=== PATIENT | female | born 1970 | race African-American/Black ===

== ENCOUNTER 2016-11-15 03:07 | Emergency (ER) | payer OTHER ==
[2016-11-15 03:30] VITALS: BMI 39.5
--- NOTE | 2016-11-15 03:31 | PDOC ---
History of Present Illness - General History Source: Patient Exam Limitations: No Limitations - History of Present Illness Initial Comments: 11/15/16 03:45 The patient is a 46 year old female with significant past medical history of seizure disorder who presents to the ED with s/p witnessed seizure episode prior to arrival. Denies head trauma, headache, tongue biting, or bladder/bowel incontinence. States her seizure medications have increased since then she has had 3 seizures 2 weeks ago. At time of evaluation, patient has no complaints. The patient denies fever, chills, cough, SOB, chest pain, and palpitations. The patient denies abdominal pain, nausea, vomiting, and diarrhea. Allergies: diphenhydramine HCl Social History: No alcohol, tobacco, or drug use reported. Past Surgical History: None reported PCP: Dr. Ilsa Brandt Neurologist: Dr. Croft <Ashely Couch - Last Filed: 11/15/16 03:45> - General History Source: Patient <Christian Shoemaker - Last Filed: 11/15/16 05:05> - General Chief Complaint: Seizure Stated Complaint: SEIZURE Time Seen by Provider: 11/15/16 03:31 Past History <Ashely Couch - Last Filed: 11/15/16 03:45> - Past Medical History Anemia: No Asthma: No Cancer: No Cardiac Disorders: No CVA: No COPD: No CHF: No Dementia: No Diabetes: Yes (borderline) GI Disorders: No Disorders: No HTN: No Hypercholesterolemia: No Liver Disease: No Suicide Attempt (Hx): No Seizures: Yes (STOPPED MEDS ON OWN X 2 DAYS) Thyroid Disease: No - Surgical History Orthopedic Surgery: Yes - Immunization History Td Vaccination: No TDAP Vaccination: No Immunization Up to Date: No - Psycho/Social/Smoking Cessation Hx Anxiety: No Suicidal Ideation: No Smoking Status: Yes Smoking History: Never smoked Have you smoked in the past 12 months: No Number of Cigarettes Smoked Daily: 6 'Breaking Loose' booklet given: 08/31/14 Hx Alcohol Use: No Drug/Substance Use Hx: No Substance Use Type: None Hx Substance Use Treatment: No <Christian Shoeamker - Last Filed: 11/15/16 05:05> - Past Medical History Allergies/Adverse Reactions: Allergies Allergy/AdvReac Type Severity Reaction Status Date / Time diphenhydramine HCl Allergy Verified 11/15/16 03:38 [From Benadryl] Home Medications: Ambulatory Orders Lacosamide [Vimpat] 200 mg PO BID 01/29/12 Oxcarbazepine [Trileptal] 350 mg PO BID 03/18/15 Review of Systems - Review of Systems Able to Perform ROS?: Yes Comments:: 11/15/16 03:45 CONSTITUTIONAL: Absent: fever, no chills, no fatigue EYES: Absent: visual changes ENT: Absent: ear pain, no sore throat CARDIOVASCULAR: Absent: chest pain, no palpitations RESPIRATORY: Absent: cough, no SOB GI: Absent: abdominal pain, no nausea, no vomiting, no constipation, no diarrhea GENITOURINARY: Absent: dysuria, no frequency, no hematuria MUSCULOSKELETAL: Absent: back pain, no arthralgia, no myalgia SKIN: Absent: rash NEURO: +seizure Absent: headache <Ashely Couch - Last Filed: 11/15/16 03:45> *Physical Exam - Vital Signs Last Vital Signs Temp Pulse Resp BP Pulse Ox 98.1 F 71 18 124/75 99 11/15/16 03:23 11/15/16 03:23 11/15/16 03:23 11/15/16 03:23 11/15/16 03:23 - Physical Exam Comments: 11/15/16 03:45 GENERAL: Well-appearing, well-nourished. No apparent distress. HEENT: Normocephalic, atraumatic. PERRL, EOM intact. CARDIOVASCULAR: Normal S1, S2. Regular rate and rhythm. PULMONARY: Clear to auscultation bilaterally. ABDOMEN: Soft, non-distended, non-tender. EXTREMITIES: Normal ROM in all four extremities. No gross deformities. SKIN: Warm, dry. No rash NEUROLOGICAL: No focal neurological deficits. <Ashely Couch - Last Filed: 11/15/16 03:45> - Vital Signs Last Vital Signs Temp Pulse Resp BP Pulse Ox 98.1 F 71 18 124/75 99 11/15/16 03:23 11/15/16 03:23 11/15/16 03:23 11/15/16 03:23 11/15/16 03:23 <Christian Shoemaker - Last Filed: 11/15/16 05:05> ED Treatment Course - LABORATORY CBC & Chemistry Diagram: 11/15/16 04:10 11/15/16 04:10 <Christain Shoemaker - Last Filed: 11/15/16 05:05> *DC/Admit/Observation/Transfer - Attestations Scribe Attestion: 11/15/16 03:45 Documentation prepared by Ashely Couch, acting as medical doctor for Christian Shoemaker MD <Ashely Couch - Last Filed: 11/15/16 03:45> - Discharge Dispostion Admit: No <Christian Shoemaker - Last Filed: 11/15/16 05:05> Diagnosis at time of Disposition: Seizure - Discharge Dispostion Disposition: HOME Condition at time of disposition: Stable - Referrals Referrals: Ilsa Brandt MD [Primary Care Provider] - - Patient Instructions Printed Discharge Instructions: DI for Seizure Disorder -- Adult Additional Instructions: Please follow up with your [id number] as soon as possible.
[2016-11-15 04:18] LABS: BASOPHIL 0.8 % (0-2.0); EOSINOPHIL 1.6 % (0-4.5); MCH 29.4 pg (25.7-33.7); MCHC 33.4 g/dl (32.0-36.0); MEAN CELL VOLUME 88.1 fl (80-96); MEAN PLT VOLUME 7.3 fl (7.5-11.1); NEUTROPHILS 71.4 % (42.8-82.8); PLATELET COUNT 278 K/MM3 (134-434); RDW 14.4 % (11.6-15.6); WHITE BLOOD COUNT 6.8 K/mm3 (4.0-10.0)
[2016-11-15 04:44] LABS: ALBUMIN 3.9 g/dl (3.4-5.0); ANION GAP 5 (8-16); BILIRUBIN,TOTAL 0.2 mg/dL (0.2-1.0); CALCIUM 8.6 mg/dL (8.5-10.1); CO2 30 mmol/L (21-32); COCKROFT - GAULT 218.1185; CREATININE 0.6 mg/dL (0.55-1.02); GLUCOSE,RANDOM 107 mg/dL (74-106); SGOT/AST 16 U/L (15-37); SGPT/ALT 15 U/L (12-78)
[2016-11-15 04:45] LABS: ALK PHOS 46 U/L (45-117); TOT PROT 7.2 g/dl (6.4-8.2)
[2016-11-15 05:18] VITALS: BP 125/78; PULSE 68; TEMP 98.3
== END 2016-11-15 05:15 | disposition home or self-care (01) ==
LOC: JER 03:07
DX: G40.909 Epilepsy, unspecified, not intractable, without status epilepticus (principal); E11.9 Type 2 diabetes mellitus without complications
CPT/HCPCS: 36415; 70450-TC; 80053; 81003; 83735; 84703; 85025; 99283-25

== ENCOUNTER 2016-12-04 12:08 | Emergency (ER) | payer OTHER ==
[2016-12-04 12:25] VITALS: BMI 36.5
[2016-12-04] MEDS ORDERED: SODIUM CHLORIDE 1,000 ML IV ONE (12:41)
--- NOTE | 2016-12-04 12:41 | PDOC ---
History of Present Illness - General History Source: Patient Exam Limitations: No Limitations - History of Present Illness Initial Comments: 12/04/16 13:02 The patient is a 46 year old female with a significant past medical history of seizure disorder, and borderline diabetes, brought by ambulance to the Emergency Department s/p seizure just prior to arrival. The patient reports that she was at home when she had a seizure, falling out of a chair onto her face and knees. She admits that she had a nosebleed, and admits to right knee pain. She reports that the seizure was unwitnessed, and she is unsure how long she was unconsciousness, though her daughters were home. She admits that she was seen in the ED on 11/15 for her last seizure, and had a CT that was negative. She states that she has been having seizures for many years, and that they were well controlled until this July. She admits that this seizure was typical of her seizures. She reports seeing her neurologist earlier in the month , who increased her dosage of seizure medication. She admits that she takes 450 Trileptal in the morning, and was recently prescribed to increase her night time dosage to 600. She admits that she has not yet started her increased dosage due to insurance reasons. She admits to taking her 450 dose this morning. The patient denies headache, dizziness, and visual changes. Patient denies numbness or tingling to extremities. Patient denies nausea, vomiting, and diarrhea. Patient denies cough, fever, and chills. Neurologist: Dr. Osman <Roxie Diaz - Last Filed: 12/04/16 13:02> <Girma Murray - Last Filed: 12/04/16 14:10> - General Chief Complaint: Seizure Stated Complaint: seizures Time Seen by Provider: 12/04/16 12:31 Past History <Roxie Diaz - Last Filed: 12/04/16 13:02> - Past Medical History Anemia: No Asthma: No Cancer: No Cardiac Disorders: No CVA: No COPD: No CHF: No Dementia: No Diabetes: Yes (borderline) GI Disorders: No Disorders: No HTN: No Hypercholesterolemia: No Liver Disease: No Suicide Attempt (Hx): No Seizures: Yes (vimpat and trileptal) Thyroid Disease: No - Surgical History Orthopedic Surgery: Yes - Immunization History Td Vaccination: No TDAP Vaccination: No Immunization Up to Date: No - Psycho/Social/Smoking Cessation Hx Anxiety: No Suicidal Ideation: No Smoking Status: Yes Smoking History: Former smoker Have you smoked in the past 12 months: No Number of Cigarettes Smoked Daily: 6 If you are a former smoker, when did you quit?: 2009 Information on smoking cessation initiated: No 'Breaking Loose' booklet given: 08/31/14 Hx Alcohol Use: No Drug/Substance Use Hx: No Substance Use Type: None Hx Substance Use Treatment: No <Girma Murray - Last Filed: 12/04/16 14:10> - Past Medical History Allergies/Adverse Reactions: Allergies Allergy/AdvReac Type Severity Reaction Status Date / Time diphenhydramine HCl Allergy Verified 12/04/16 12:23 [From Benadryl] Home Medications: Ambulatory Orders Lacosamide [Vimpat] 200 mg PO BID 01/29/12 Oxcarbazepine [Trileptal] 350 mg PO BID 03/18/15 Nitrofurantoin Monohyd/M-Cryst [Macrobid -] 100 mg PO BID #14 capsule 12/04/16 Review of Systems - Review of Systems Constitutional: No: Chills, Fever HEENTM: No: Eye Pain, Nose Congestion, Throat Swelling Respiratory: No: Cough, Shortness of Breath Cardiac (ROS): No: Chest Pain ABD/GI: No: Vomiting Neurological: No: Headache All Other Systems: Reviewed and Negative <Girma Murray - Last Filed: 12/04/16 14:10> *Physical Exam - Vital Signs Last Vital Signs Temp Pulse Resp BP Pulse Ox 98.1 F 79 18 142/90 100 12/04/16 12:19 12/04/16 12:19 12/04/16 12:19 12/04/16 12:19 12/04/16 12:19 - Physical Exam Comments: 12/04/16 13:04 GENERAL: The patient is awake, alert, and answering questions appropriately. Slightly disoriented to time. In no acute distress. HEAD: No facial tenderness or deformity. No C-spine tenderness. EYES: Pupils equal, round and reactive to light, extraocular movements intact, sclera anicteric, conjunctiva clear with no pallor. ENT: Ears normal, nares patent, oropharynx clear without exudates. Moist mucous membranes. NECK: Normal range of motion, supple without lymphadenopathy, JVD, or masses. LUNGS: Breath sounds equal, clear to auscultation bilaterally. No wheeze/ crackles. HEART: Regular rate and rhythm, normal S1 and S2 without murmur or rub. ABDOMEN: Soft/nontender/nondistended. BS wnl. No guarding or rebound. No palpable masses. No hepatosplenomegaly. EXTREMITIES: 3mm abrasion over right patella, no bony deformity or focal tenderness. Extensor mechanism intact. Normal range of motion, no edema. No clubbing or cyanosis. No cords, or erythema. NEURO: Mental status: Conversant and answering questions appropriately, slightly disoriented to time. Cranial nerves: Cranial nerves II through XII are intact Motor: The upper extremities are 5 over 5 in all muscle groups. The lower extremities are 5 over 5 in all muscle groups. No pronator drift. Sensation: Sensation is intact to light touch throughout. Cerebellar: Pilpox-[id number] is normal in both upper extremities. Heel-knee- morrison is normal in both lower extremities. Reflexes: 2+ and symmetric in the upper and lower extremities. PSYCH: Normal mood. SKIN: Warm, Dry, normal turgor, no rashes or lesions noted. <Roxie Diaz - Last Filed: 12/04/16 13:02> - Vital Signs Last Vital Signs Temp Pulse Resp BP Pulse Ox 98.1 F 79 18 142/90 100 12/04/16 12:19 12/04/16 12:19 12/04/16 12:19 12/04/16 12:19 12/04/16 12:19 <Girma Murray - Last Filed: 12/04/16 14:10> Heart Score/ECG Review #1 ECG reviewed & interpreted by me at: 13:53 General ECG Interpretation: Sinus Rhythm, Normal Rate (66), Normal Intervals ( qtc 454), No acute ischemic changes <Girma Murray - Last Filed: 12/04/16 14:10> ED Treatment Course - LABORATORY CBC & Chemistry Diagram: 12/04/16 13:11 12/04/16 13:11 <Girma Murray - Last Filed: 12/04/16 14:10> Medical Decision Making - Medical Decision Making 12/04/16 13:10 A portion of this note was documented by scribe services under my direction. I have reviewed the details of the note, within reason, and agree with the documentation with the following case summary and management plan written by me. 46-year-old female with history of seizures maintained on Trileptal now with breakthrough seizures in the morning with recommendations from her neurologist to increase dose from 450 twice a day to 450 in the morning and 600 at night, but has been noncompliant with that adjustment and now presents with repeat seizure today. Complaining of right knee pain, otherwise typical seizure. No previous infectious or dehydration complaints, has no new neuro complaints, no headache. Exam as noted, trauma exam limited to right knee with some discomfort but no gross evidence of fracture Neurologically intact, neurovascularly intact 46-year-old female with increasing frequency of seizures presents with another seizure, self resolved. Etiology is likely noncompliance with the recommended increased dose, but the patient was just having difficulty combining her current meds to meet the dosing recommendations. We discussed this at length and figured out a way for her to take the doses properly. no indication for emergent repeat imaging - CT 11/15 without acute pathology labs, ua ivf reassess 12/04/16 13:59 No leukocytosis, electrolytes are within normal limits, CK is normal. Urinalysis with 2+ leuk esterase and 6 white blood cells, will treat empirically for UTI given increased frequency of seizures. Improved now, ambulating steadily in the ED, no further sz activity. Will d/c on macrobid, f/u with her neurologist, start the new recommended doses. Understands return criteria. <Girma Murray - Last Filed: 12/04/16 14:10> *DC/Admit/Observation/Transfer - Attestations Scribe Attestion: 12/04/16 13:07 Documentation prepared by Roxie Diaz, acting as medical hospital sales for Girma Murray MD. <Roxie Diaz - Last Filed: 12/04/16 13:02> <Girma Murray - Last Filed: 12/04/16 14:10> Diagnosis at time of Disposition: Seizure Qualifiers: Convulsion type: unspecified Qualified Code(s): R56.9 - Unspecified convulsions UTI (urinary tract infection) Qualifiers: Urinary tract infection type: acute cystitis Hematuria presence: without hematuria Qualified Code(s): N30.00 - Acute cystitis without hematuria - Discharge Dispostion Disposition: HOME Condition at time of disposition: Improved - Prescriptions Prescriptions: Nitrofurantoin Monohyd/M-Cryst [Macrobid -] 100 mg PO BID #14 capsule - Referrals Referrals: Ilsa Brandt MD [Primary Care Provider] - - Patient Instructions Printed Discharge Instructions: DI for Urinary Tract Infection (UTI) Additional Instructions: Activity as tolerated. Stay hydrated. A urine test shows evidence of an infection. Take Macrobid as prescribed. Continue your medications as previously prescribed by your physician - take 450mg in the morning and 600mg at night as we discussed as your neurologist recommended. You should follow up with your primary doctor and neurologist as soon as possible regarding today's emergency department visit. Return to the emergency department for any new or concerning symptoms, particularly fevers or chills, persistent seizures, difficulty urinating.
[2016-12-04 13:28] LABS: BASOPHIL 1.1 % (0-2.0); EOSINOPHIL 1.9 % (0-4.5); MCH 29.1 pg (25.7-33.7); MEAN CELL VOLUME 88.2 fl (80-96); MEAN PLT VOLUME 7.2 fl (7.5-11.1); NEUTROPHILS 72.2 % (42.8-82.8); PLATELET COUNT 268 K/MM3 (134-434); WHITE BLOOD COUNT 6.8 K/mm3 (4.0-10.0)
[2016-12-04 13:48] LABS: URINE APPEARANCE CLEAR; URINE BILIRUBIN NEGATIVE (NEGATIVE); URINE BLOOD NEGATIVE (NEGATIVE); URINE COLOR YELLOW; URINE GLUCOSE (UA) NEGATIVE (NEGATIVE); URINE KETONE NEGATIVE (NEGATIVE); URINE NITRITE NEGATIVE (NEGATIVE); URINE PROTEIN NEGATIVE (NEGATIVE); URINE UROBILINOGEN NEGATIVE E.U./dl (0.2-1.0)
[2016-12-04 13:52] LABS: ALBUMIN 3.9 g/dl (3.4-5.0); ANION GAP 9 (8-16); CALCIUM 8.8 mg/dL (8.5-10.1); CO2 29 mmol/L (21-32); COCKROFT - GAULT 201.3395; CREATININE 0.6 mg/dL (0.55-1.02); GLUCOSE,RANDOM 94 mg/dL (74-106); SGOT/AST 16 U/L (15-37); SGPT/ALT 16 U/L (12-78)
[2016-12-04 13:53] LABS: URINE LEUK ESTERASE 2+ (NEGATIVE)
[2016-12-04 13:55] LABS: ALK PHOS 44 U/L (45-117); BILIRUBIN,TOTAL 0.3 mg/dL (0.2-1.0); TOT PROT 7.4 g/dl (6.4-8.2); TROPONIN I < 0.02 ng/ml (0.00-0.05)
[2016-12-04 13:56] LABS: URINE MUCUS RARE; URINE RBC 2 /hpf (0-3); URINE WBC 6 /hpf (3-5)
[2016-12-04 14:20] VITALS: BP 139/74; PULSE 80; TEMP 98.6
--- NOTE | 2016-12-04 14:40 | EKG ---
Test Reason : Blood Pressure : / mmHG Vent. Rate : 066 BPM Atrial Rate : 066 BPM P-R Int : 198 ms QRS Dur : 090 ms QT Int : 434 ms P-R-T Axes : 050 009 009 degrees QTc Int : 454 ms NORMAL SINUS RHYTHM NORMAL ECG WHEN COMPARED WITH ECG OF 12-DEC-2015 22:39, NO SIGNIFICANT CHANGE WAS FOUND Confirmed by TITUS BOYD MD ([id number]) on 12/04/2016 2:39:54 PM Referred By: Confirmed By:TITUS BOYD MD
== END 2016-12-04 14:18 | disposition home or self-care (01) ==
LOC: JER 12:08
PROC: 3E0337Z Introduction of Electrolytic and Water Balance Substance into Peripheral Vein, Percutaneous Approach (ICD-10-PCS; principal; 2016-12-04)
DX: N30.00 Acute cystitis without hematuria (principal); G40.802 Other epilepsy, not intractable, without status epilepticus; E11.9 Type 2 diabetes mellitus without complications
CPT/HCPCS: 36415; 80053; 81003; 81015; 82550; 84484; 84703; 85025; 93005; 93010; 96360; 99282-25

== ENCOUNTER 2017-11-29 08:03 | Emergency (ER) | payer OTHER ==
[2017-11-29 08:12] VITALS: BMI 43.7
--- NOTE | 2017-11-29 08:18 | PDOC ---
History of Present Illness - General Chief Complaint: Seizure Stated Complaint: SEIZURE Time Seen by Provider: 11/29/17 08:11 History Source: Patient, EMS Exam Limitations: Clinical Condition (Somnolent) - History of Present Illness Initial Comments: 11/29/17 08:18 The patient is a 47F with a PMH of seizures who presents to the ER after having an witnessed seizure. History is provided by the patient and daughter, who responded to the patient once she heard a thump upstairs. The daughter states that the patient was in the kitchen and fell forward with upper body shaking, typical of her normal seizures. The patient states that she felt an aura in her head and then does not remember. She states that she feels lethargic, and is complaining of pain in her L wrist and lower lip. The patient's daughter states that she fell forward but did not have any bowel/bladder incontinence. The patient denies any fever, chills, nausea, vomiting, abdominal pain, CP, SOB. Past History - Past Medical History Allergies/Adverse Reactions: Allergies Allergy/AdvReac Type Severity Reaction Status Date / Time diphenhydramine HCl Allergy Verified 12/04/16 12:23 [From Benadryl] Home Medications: Ambulatory Orders Lacosamide [Vimpat] 200 mg PO BID 01/29/12 Oxcarbazepine [Trileptal] 300 mg PO BID 03/18/15 Anemia: No Asthma: No Cancer: No Cardiac Disorders: No CVA: No COPD: No CHF: No Dementia: No Diabetes: Yes (borderline) GI Disorders: No Disorders: No HTN: No Hypercholesterolemia: No Liver Disease: No Seizures: Yes (vimpat and trileptal) Thyroid Disease: No - Surgical History Orthopedic Surgery: Yes - Immunization History Td Vaccination: No TDAP Vaccination: No Immunization Up to Date: No - Suicide/Smoking/Psychosocial Hx Smoking Status: Yes Smoking History: Never smoked Have you smoked in the past 12 months: No Number of Cigarettes Smoked Daily: 6 If you are a former smoker, when did you quit?: 2009 Information on smoking cessation initiated: No 'Breaking Loose' booklet given: 08/31/14 Hx Alcohol Use: No Drug/Substance Use Hx: No Substance Use Type: None Hx Substance Use Treatment: No Review of Systems - Review of Systems Able to Perform ROS?: Yes (Limited d/t somnolence) Is the patient limited Mexican proficient: No Constitutional: No: Chills, Fever HEENTM: Yes: Mouth Pain (Lower lip). No: Eye Pain, Blurred Vision, Nose Pain Respiratory: No: Shortness of Breath, SOB with Exertion Cardiac (ROS): No: Chest Pain, Lightheadedness, Palpitations ABD/GI: No: Nausea, Vomiting Musculoskeletal: Yes: Other (L wrist pain). No: Back Pain Neurological: Yes: Other (Seizure). No: Headache, Numbness, Tingling, Weakness Hematologic/Lymphatic: No: Anemia, Blood Clots *Physical Exam - Vital Signs Last Vital Signs Temp Pulse Resp BP Pulse Ox 98.0 F 65 16 135/64 99 11/29/17 08:08 11/29/17 08:08 11/29/17 08:08 11/29/17 08:08 11/29/17 08:08 - Physical Exam Comments: 11/29/17 08:46 GENERAL: Well developed, well nourished. Awake and alert. No acute distress. HEENT: Normocephalic, atraumatic. Hearing grossly normal. Moist mucous membranes. PERRLA, EOMI. No conjunctival pallor. Sclera are non-icteric. Abrasion on lower lip. NECK: Supple. Full ROM. CARDIOVASCULAR: Regular rate and rhythm. No murmurs, rubs, or gallops. PULMONARY: No evidence of respiratory distress. Lungs clear to auscultation bilaterally. No wheezing, rales or rhonchi. ABDOMINAL: Soft. Non-tender. Non-distended. No rebound or guarding. GENITOURINARY: No CVA tenderness bilaterally. MUSCULOSKELETAL: Tenderness in L wrist. Normal range of motion at all joints. No bony deformities or tenderness. EXTREMITIES: No cyanosis. No clubbing. No edema. No calf tenderness. SKIN: Warm and dry. Normal capillary refill. No rashes. No jaundice. NEUROLOGICAL: Alert, awake, appropriate. Cranial nerves 2-12 intact. No deficits to light touch and temperature in face, upper extremities and lower extremities. No motor deficits in the in face, upper extremities and lower extremities. Normal speech. Gait is normal without ataxia. PSYCHIATRIC: Cooperative. Good eye contact. Appropriate mood and affect. Procedures - Splinting Splint Location: Left: Hand, Wrist Pre-Proc Neuro Vasc Exam: normal Hand-Made Type: orthoglass Splint Type: Yes: Thumb Spica Post-Proc Neuro Vasc Exam: normal Harsha Bandage: 3" Sling: No Complications: No Post splint xray: No Good repositioning: No (N/a) Heart Score/ECG Review #1 ECG reviewed & interpreted by me at: 08:46 General ECG Interpretation: Sinus Rhythm, Normal Rate, Normal Intervals, No acute ischemic changes Compared to previous ECG there are: No significant change 11/29/17 08:52 Vent rate 64 LA 200 QRS 82 QTc 439 NSR No acute ischemic changes No ZAK or STD ED Treatment Course - LABORATORY CBC & Chemistry Diagram: 11/29/17 08:26 11/29/17 08:26 - RADIOLOGY Radiology Studies Ordered: Category Date Time Status CHEST X-RAY PORTABLE* [RAD] Stat Radiology 11/29/17 08:13 Ordered Medical Decision Making - Medical Decision Making 11/29/17 08:51 The patient is a 47F with a PMH of seizures who presented s/p seizure with her daughters. The patient is somnolent but this is a normal post-ictal course per daughters. Will order labs and imaging to r/o other causes of seizure. Will give home dose of morning medications. Pending labs/imaging. 11/29/17 10:41 Dr. Peace, associate of Dr. Stokes (pt's neurologist), states that the patient should be on 600 BID Trileptal. Will give 300 more. Pt informed. Will place for head CT. Labs WNL including CBC, CMP, and UA. 11/29/17 11:49 Thumb spica placed. Pending CT read. 11/29/17 11:58 CT negative for acute pathology. Will d/c pt home with PCP and neuro f/u. *DC/Admit/Observation/Transfer Diagnosis at time of Disposition: Seizure Qualifiers: Convulsion type: unspecified Qualified Code(s): R56.9 - Unspecified convulsions - Discharge Dispostion Disposition: HOME Condition at time of disposition: Stable Decision to Admit order: No - Referrals Referrals: Ilsa Brandt MD [Primary Care Provider] - - Patient Instructions Printed Discharge Instructions: DI for Seizure Disorder -- Adult Additional Instructions: Please follow up with your primary care physician in 2-3 days. Please call your neurologist on Friday morning to schedule an appointment. Please take your medications as prescribed. Take 600mg twice a day, instead of 300 twice a day of Trileptal. Please return to the ER if you have any signs or symptoms of chest pain, shortness of breath, uncontrollable fever, chills, nausea, vomiting, numbness, tingling, or weakness in any part of your body, changes in vision, or slurred speech. Please return to the ER if symptoms persist, worsen, or new symptoms arise. - Post Discharge Activity
[2017-11-29 08:36] LABS: BASO % 0.7 % (0-2.0); EOS % 2.3 % (0-4.5); HEMATOCRIT 36.6 % (32.4-45.2); HEMOGLOBIN 12.4 GM/dL (10.7-15.3); MCH 29.5 pg (25.7-33.7); MCHC 33.8 g/dl (32.0-36.0); MEAN CELL VOLUME 87.3 fl (80-96); MONO % 4.7 % (3.8-10.2); NEUT % 68.3 % (42.8-82.8); PLATELET COUNT 239 K/MM3 (134-434); RBC 4.19 M/mm3 (3.60-5.2); RDW 14.1 % (11.6-15.6); WHITE BLOOD COUNT 5.7 K/mm3 (4.0-10.0)
[2017-11-29] MEDS ORDERED: LACOSAMIDE 50 MG TABLET PO ONE ×3 (08:36→08:51)
[2017-11-29] MEDS ORDERED: OXcarbazepine 300 MG TABLET (UD) PO ONE ×2 (08:36→10:42)
[2017-11-29 08:42] VITALS: BP 138/82; PULSE 85; TEMP 98.1
[2017-11-29 09:06] LABS: ALBUMIN 3.7 g/dl (3.4-5.0); ALK PHOS 52 U/L (45-117); ANION GAP 4 (8-16); BILIRUBIN,TOTAL 0.3 mg/dL (0.2-1.0); BLOOD UREA NITROGEN 8 mg/dL (7-18); CALCIUM 8.7 mg/dL (8.5-10.1); CHLORIDE 105 mmol/L (98-107); CO2 31 mmol/L (21-32); CREATININE 0.7 mg/dL (0.55-1.02); GLUCOSE,RANDOM 112 mg/dL (74-106); POTASSIUM 4.2 mmol/L (3.5-5.1); SGOT/AST 17 U/L (15-37); SGPT/ALT 16 U/L (12-78); SODIUM 140 mmol/L (136-145); TOT PROT 7.3 g/dl (6.4-8.2)
[2017-11-29 09:27] LABS: URINE APPEARANCE CLEAR; URINE BILIRUBIN NEGATIVE (<2.0 mg/dL); URINE COLOR LTYELLOW; URINE GLUCOSE (UA) NEGATIVE (NEGATIVE); URINE KETONE NEGATIVE (NEGATIVE); URINE LEUK ESTERASE NEGATIVE (NEGATIVE); URINE NITRITE NEGATIVE (NEGATIVE); URINE PROTEIN NEGATIVE (NEGATIVE); URINE UROBILINOGEN NEGATIVE mg/dL (0.2-1.0)
--- NOTE | 2017-11-29 10:27 | PDOC ---
Attending Attestation - Resident Resident Name: Marito Valenzuela - ED Attending Attestation I have performed the following: I have examined & evaluated the patient, The case was reviewed & discussed with the resident, I agree w/resident's findings & plan, Exceptions are as noted - HPI HPI: 11/29/17 10:29 The patient is a 47 year old female with past medical history of seizures who presents to the ED s/p witnessed seizure this morning. As per daughter, the patient was downstairs making breakfast when her sister heard a thump and saw the patient seizing, noting upper body convulsions, and biting her lip. The patient recalls having her usual aura before the seizure began, noting she fell forward. Reports hitting her head on the counter, no injuries. In the ED, she complains of lip pain and left wrist pain but denies any headache or any focal deficits. She reports she hadn't taken her morning medications yet, but was making breakfast to take them. Pt reports she barely slept last night as her brother was here in the hospital last night. She denies any fevers, chills, nausea, vomiting, diarrhea, cough, SOB, or urinary symptoms. Reports compliance with her trileptal and vimpat, her meds were last increased 1 month ago after an abnormal EEG. Pt reports last seizure was in September. Neurologist: Dr. Lakhani - Physicial Exam PE: 11/29/17 10:45 GENERAL: Awake, alert, and fully oriented, in no acute distress HEAD: No signs of trauma EYES: PERRLA, EOMI, sclera anicteric, conjunctiva clear ENT: Auricles normal inspection, hearing grossly normal, nares patent, oropharynx clear without exudates. Left lower lip with edema and ecchymosis to inner lip with no laceration. No tongue trauma. Moist mucosa NECK: Normal ROM, supple, no lymphadenopathy, JVD, or masses LUNGS: Breath sounds equal, clear to auscultation bilaterally. No wheezes, and no crackles HEART: Regular rate and rhythm, normal S1 and S2, no murmurs, rubs or gallops ABDOMEN: Soft, nontender, normoactive bowel sounds. No guarding, no rebound. No masses EXTREMITIES: Normal range of motion, no edema. No clubbing or cyanosis. No cords, erythema, or tenderness NEUROLOGICAL: Normal speech, cranial nerves intact, negative pronator drift, 5/ 5 strength in all 4 extremities, normal sensation to light touch in all 4 extremities, normal cerebellar exam, normal gait, normal reflexes and tone BACK: no midline spinal cervical, thoracic, lumbar ttp SKIN: Warm, Dry, normal turgor, no rashes or lesions noted. - Medical Decision Making 11/29/17 09:46 47-year-old female with a history of seizures presents emergency Department with a seizure. Vitals unremarkable. Exam with left lower lip swelling, but no laceration and left wrist tenderness to palpation and mild edema to the dorsal aspect of distal forearm. No deformity, patient is neurovascularly intact. + snuff box ttp. Possible traumatic wrist injury. Likely breakthrough seizure 2/2 sleep deprivation although pt notes seizures are not well controlled at baseline and that her neurologist is working on titrating her medications accordingly. Plan: -labs -CTH -UA -UPT -XR wrist/forearm -thumb spica -call pt's neurologist 11/29/17 17:56 CTH neg. Labs wnl. UA wnl. Seizure likely 2/2 sleep deprivation. Spoke with pt's neuroogist who states pt is taking half the dose she is supposed to take of the trileptal and recommended we tell her to take twice the dose she is currently taking. He wants her to f/u within the nxt wk and to call Friday for an appointment. Pt feels better, XR negative for acute fracture although given snuff box ttp, thumb spica splint placed. Ortho referral provided, advised pt to f/u in 7-10 days. I discussed the physical exam findings, ancillary test results and final diagnoses with the patient. I answered all of the patient's questions. The patient was satisfied with the care received and felt comfortable with the discharge plan and treatment plan. The patient will call their primary care physician within 24 hours to arrange follow-up and will return to the Emergency Department with any new, persistent or worsening symptoms.
--- NOTE | 2017-11-29 15:36 | EKG ---
Test Reason : Blood Pressure : / mmHG Vent. Rate : 064 BPM Atrial Rate : 064 BPM P-R Int : 200 ms QRS Dur : 082 ms QT Int : 426 ms P-R-T Axes : 049 000 002 degrees QTc Int : 439 ms NORMAL SINUS RHYTHM NONSPECIFIC T WAVE ABNORMALITY ABNORMAL ECG WHEN COMPARED WITH ECG OF 04-DEC-2016 13:53, NONSPECIFIC T WAVE ABNORMALITY NOW EVIDENT IN LATERAL LEADS Confirmed by DEB HUYNH, TITUS ([id number]) on 11/29/2017 3:35:46 PM Referred By: Confirmed By:TITUS BOYD MD
== END 2017-11-29 12:35 | disposition home or self-care (01) ==
LOC: JER 08:03
PROC: 2W3DX1Z Immobilization of Left Lower Arm using Splint (ICD-10-PCS; principal; 2017-11-29)
DX: G40.909 Epilepsy, unspecified, not intractable, without status epilepticus (principal); S69.92XA Unspecified injury of left wrist, hand and finger(s), initial encounter; S00.511A Abrasion of lip, initial encounter; W18.39XA Other fall on same level, initial encounter; Y93.89 Activity, other specified; Y92.030 Kitchen in apartment as the place of occurrence of the external cause; Y99.8 Other external cause status
CPT/HCPCS: 29125; 36415; 70450-TC; 71045-TC-FY; 73090-TC-LT-FY; 73110-TC-LR-FY; 73130-TC-LR-FY; 80053; 81003; 84703; 85025; 93005; 93010; 99283-25

== ENCOUNTER → 2018-05-19 | Day surgery (SDC) | payer OTHER | END | disposition home or self-care (01) | LOC: JRADIR 08:41 | PROVIDERS: ATTEND Internal Medicine | PROC: 0G9H3ZX Drainage of Right Thyroid Gland Lobe, Percutaneous Approach, Diagnostic (ICD-10-PCS; principal; 2018-05-19) | PROC: BG44ZZZ Ultrasonography of Thyroid Gland (ICD-10-PCS; 2018-05-19) | DX: E04.1 Nontoxic single thyroid nodule (principal); Z53.8 Procedure and treatment not carried out for other reasons | CPT/HCPCS: 76536-TC; 76942 ==

== ENCOUNTER 2018-09-23 09:11 | Day surgery (SDC) | payer OTHER ==
[2018-09-15 12:04] VITALS: BMI 37.9
[2018-09-23] MEDS ORDERED: PROPOFOL 20 ML ONE (09:56)
[2018-09-23] MEDS ORDERED: LIDOCAINE HCL/PF 2% SDV 5ML VIAL ONE (09:56)
[2018-09-23 10:46] VITALS: TEMP 97.5
[2018-09-23 11:23] VITALS: BP 132/80; PULSE 65
--- NOTE | 2018-09-24 17:22 | PATH ---
Surgical Pathology Report Patient Name: SIDNEY ROJAS [facility]. Rec. #: [id number] /Age/Gender: 1970 (Age: 48) / F Account: [id number] Location: [facility] Taken: 09/23/2018 Received: 09/23/2018 Reported: 09/24/2018 Physicians: Candelaria Vela M.D. Specimen(s) Received A: SECOND PORTION DUODENUM B: ANTRUM C: GE JUNCTION Clinical History Abdominal pain Postoperative diagnosis: Gastritis Final Diagnosis A. SECOND PORTION DUODENUM, BIOPSY: DUODENAL MUCOSA WITHOUT SIGNIFICANT PATHOLOGIC FINDINGS. B. ANTRUM, BIOPSY: GASTRIC ANTRAL MUCOSA WITH MILD CHRONIC GASTRITIS. IMMUNOHISTOCHEMICAL STAIN FOR H. PYLORI IS NEGATIVE. C. GE JUNCTION, BIOPSY: GASTRIC CARDIAC TYPE MUCOSA WITH MILD CHRONIC GASTRITIS. IMMUNOHISTOCHEMICAL STAIN FOR H. PYLORI IS NEGATIVE. NO SQUAMOUS MUCOSA, INTESTINAL METAPLASIA, OR DYSPLASIA IDENTIFIED. Electronically Signed Candelaria Isbell M.D. Gross Description A. Received in formalin, labeled "second portion duodenum" is a aguilar, irregular portion of soft tissue measuring 0.5 cm. in greatest dimension. The specimen is submitted in toto in one cassette. B. Received in formalin, labeled "antrum" is a aguialr, irregular portion of soft tissue measuring 0.4 cm. in greatest dimension. The specimen is submitted in toto in one cassette. C. Received in formalin, labeled "GE junction" is a aguilar, irregular portion of soft tissue measuring 0.3 cm. in greatest dimension. The specimen is submitted in toto in one cassette. 09/23/2018 saudi09/23/2018
== END 2018-09-23 11:25 | disposition home or self-care (01) ==
LOC: FASU-ENDO 09:11
PROVIDERS: ATTEND Internal Medicine Gastroenterology
PROC: 0DB68ZX Excision of Stomach, Via Natural or Artificial Opening Endoscopic, Diagnostic (ICD-10-PCS; 2018-09-23)
PROC: 0DB48ZX Excision of Esophagogastric Junction, Via Natural or Artificial Opening Endoscopic, Diagnostic (ICD-10-PCS; 2018-09-23)
PROC: 0DB98ZX Excision of Duodenum, Via Natural or Artificial Opening Endoscopic, Diagnostic (ICD-10-PCS; principal; 2018-09-23 10:22)
DX: K29.50 Unspecified chronic gastritis without bleeding (principal); R10.9 Unspecified abdominal pain; K25.9 Gastric ulcer, unspecified as acute or chronic, without hemorrhage or perforation
CPT/HCPCS: 84703; 88305-TC; 88342-TC

== ENCOUNTER 2018-10-28 10:16 | Day surgery (SDC) | payer OTHER ==
[2018-10-26 16:28] VITALS: BMI 37.4
[2018-10-28] MEDS ORDERED: PROPOFOL 20 ML ONE ×2 (12:12)
[2018-10-28 14:31] VITALS: BP 128/69; PULSE 66; TEMP 97.8
== END 2018-10-28 14:20 | disposition home or self-care (01) ==
LOC: FASU-ENDO 10:16
PROVIDERS: ATTEND Internal Medicine Gastroenterology
PROC: 0DJD8ZZ Inspection of Lower Intestinal Tract, Via Natural or Artificial Opening Endoscopic (ICD-10-PCS; principal; 2018-10-28 12:17)
DX: R10.9 Unspecified abdominal pain (principal); K64.1 Second degree hemorrhoids
CPT/HCPCS: 84703

== ENCOUNTER 2018-12-19 10:01 | Emergency (ER) | payer OTHER | END 2018-12-19 11:01 | disposition home or self-care (01) | LOC: JER 10:01 → JERFT 11:01 ==

== ENCOUNTER 2019-04-25 09:09 | Emergency (ER) | payer OTHER ==
[2019-04-25 09:45] VITALS: BMI 38.2
[2019-04-25] MEDS ORDERED: SODIUM CHLORIDE 1,000 ML IV STA (09:53)
--- NOTE | 2019-04-25 09:53 | PDOC ---
History of Present Illness - General Chief Complaint: Seizure Stated Complaint: SEIZURE Time Seen by Provider: 04/25/19 09:49 History Source: Patient Exam Limitations: No Limitations - History of Present Illness Initial Comments: 04/25/19 09:50 48yo F with PMH of Epilepsy BIBA for seizure. Pt states she was grocery shopping , felt an aura and had a seizure. The next thing she remembers is waking up with EMS placing her in a stretcher. She takes Vimpat and Tripleptal for seizures twice daily but did not take her medications this AM. Last seizure was in March and says that she has had a few break though seizures this year. Endorsing R sided headache. Denies changes in vision, chest pain, sob, abdominal pain, new medications, recent illnesses, n/v/d, back pain, neck pain, numbness/tingling, weakness, urinary symptoms. LMP 3m ago. She has a neurology appointment tomorrow at noon. PMD: [facility]: [facility]? in [place] PMH: see hpi PSH: Meds: Vimpat BID Tripleptal BID Allergies: benadryl Past History - Past Medical History Allergies/Adverse Reactions: Allergies Allergy/AdvReac Type Severity Reaction Status Date / Time diphenhydramine HCl Allergy Severe SEIZURE Verified 04/25/19 09:45 [From Benadryl] Home Medications: Ambulatory Orders Lacosamide [Vimpat] 200 mg PO BID 01/29/12 Oxcarbazepine [Trileptal] 300 mg PO BID 03/18/15 Acetaminophen 500 mg PO TID #21 tablet 12/19/18 Azithromycin [Zithromax 250mg Tablets -] 250 mg PO UTDICT #6 tab 12/19/18 Anemia: No Asthma: No Cancer: No Cardiac Disorders: No CVA: No COPD: No CHF: No Dementia: No Diabetes: No (borderline-DIET CONTROLLED) GI Disorders: No Disorders: No HTN: No Hypercholesterolemia: No Liver Disease: No Seizures: Yes (vimpat and trileptal) Thyroid Disease: No - Surgical History Abdominal Surgery: No Appendectomy: No Cardiac Surgery: No Cholecystectomy: No Lung Surgery: No Neurologic Surgery: No Orthopedic Surgery: Yes (RIGHT KNEE ARTHROSCOPY, RIGHT SHOULDER ARTHROSCOPY) - Immunization History Td Vaccination: No TDAP Vaccination: No Immunization Up to Date: No - Psycho Social/Smoking Cessation Hx Smoking Status: Yes Smoking History: Never smoked Have you smoked in the past 12 months: No Number of Cigarettes Smoked Daily: 6 If you are a former smoker, when did you quit?: 2009 Information on smoking cessation initiated: No 'Breaking Loose' booklet given: 08/31/14 Hx Alcohol Use: No Drug/Substance Use Hx: No Substance Use Type: None Hx Substance Use Treatment: No Review of Systems - Review of Systems Constitutional: No: Symptoms Reported HEENTM: No: Symptoms Reported Respiratory: No: Symptoms reported Cardiac (ROS): No: Symptoms Reported ABD/GI: No: Symptoms Reported : No: Symptoms Reported Musculoskeletal: No: Symptoms Reported Integumentary: No: Symptoms Reported Neurological: Yes: Headache, Seizure *Physical Exam - Vital Signs Last Vital Signs Temp Pulse Resp BP Pulse Ox 98.5 F 78 16 125/71 100 04/25/19 09:09 04/25/19 09:09 04/25/19 09:09 04/25/19 09:09 04/25/19 09:09 - Physical Exam General Appearance: Yes: Nourished, Appropriately Dressed. No: Apparent Distress HEENT: positive: EOMI, SALVATORE, Normal ENT Inspection, Other (no tongue laceration) Neck: positive: Trachea midline, Supple Respiratory/Chest: positive: Lungs Clear, Normal Breath Sounds. negative: Crackles, Rales, Rhonchi, Stridor, Wheezing Cardiovascular: positive: Regular Rhythm, Regular Rate, S1, S2. negative: Edema , JVD, Murmur Vascular Pulses: Dorsalis-Pedis (R): 2+, Doralis-Pedis (L): 2+ Gastrointestinal/Abdominal: positive: Normal Bowel Sounds, Soft. negative: Tender Musculoskeletal: positive: Other (R hip tenderness, full ROM). negative: CVA Tenderness, Vertebral Tenderness Integumentary: positive: Normal Color, Dry, Warm Neurologic: positive: rehab manager II-XII NML intact, Fully Oriented, Alert, Normal Mood/ Affect, Normal Response, Motor Strength 5/5 ED Treatment Course - LABORATORY CBC & Chemistry Diagram: 04/25/19 10:21 04/25/19 10:21 Medical Decision Making - Medical Decision Making 04/25/19 15:31 48yo F with PMH of epilepsy presenting for seizure. vitals wnl. pt raul had break through seizure; low suspicion for infection, noncompliance. may need new regimen or increase in dosing. will order ct head, cspine, cxr, pelvis xr, basic labs, hcg, ua. labs wnl. ct normal other than nasal polyp. no fractures seen on xray. ekg: nsr given fluids and ofirmev. pt feeling better, no seizures while in ED, took AM meds here in ED. safe for dc home, will f/u wit neuro tomorrow. given return precautions. Discharge - Discharge Information Problems reviewed: Yes Clinical Impression/Diagnosis: Seizure, Nasal polyp Condition: Good Disposition: HOME - Admission No - Follow up/Referral Referrals: Ilsa Brandt MD [Primary Care Provider] - Moncho Rojas MD [Staff Physician] - - Patient Discharge Instructions Patient Printed Discharge Instructions: DI for Seizure Disorder -- Adult Additional Instructions: You were seen in the emergency room today for a seizure. Please continue to take your medications as directed and please do not miss your appointment tomorrow. Be sure to let your neurologist know that you have been having break through seizures. The CT scan showed a polyp in the nose that may be blocking one of the sinuses, I recommend following up with an ENT doctor. Information is provided below. Do not operate machinery or drive as you may have another seizure. Come back to the emergency room if you have another seizure, you experience changes in vision, have numbness/tingling, worsening headaches or if any new concerning symptom develops. Thank you - Post Discharge Activity Work/Back to School Note: Back to Work
[2019-04-25] MEDS ORDERED: ACETAMINOPHEN 1000 MG/100 ML VIAL (NON FORMULARY) IVPB ONE (09:54)
[2019-04-25] MEDS ORDERED: ACETAMINOPHEN INJECTION 100 ML IVPB ONE (10:05)
[2019-04-25 10:36] LABS: BASO % 0.8 % (0-2.0); EOS % 1.6 % (0-4.5); HEMATOCRIT 38.4 % (32.4-45.2); HEMOGLOBIN 12.9 GM/dL (10.7-15.3); LYMPH % 19.7 % (8-40); MCH 29.7 pg (25.7-33.7); MCHC 33.7 g/dl (32.0-36.0); MEAN CELL VOLUME 88.1 fl (80-96); MEAN PLT VOLUME 7.1 fl (7.5-11.1); MONO % 4.7 % (3.8-10.2); NEUT % 73.2 % (42.8-82.8); PLATELET COUNT 279 K/MM3 (134-434); RBC 4.36 M/mm3 (3.60-5.2); RDW 14.2 % (11.6-15.6); WHITE BLOOD COUNT 5.4 K/mm3 (4.0-10.0)
[2019-04-25 10:56] LABS: ALBUMIN 4.2 g/dl (3.4-5.0); ALK PHOS 63 U/L (45-117); ANION GAP 3 MMOL/L (8-16); BILIRUBIN,TOTAL 0.3 mg/dL (0.2-1); BLOOD UREA NITROGEN 10.8 mg/dL (7-18); CALCIUM 9.5 mg/dL (8.5-10.1); CHLORIDE 104 mmol/L (98-107); CO2 32 mmol/L (21-32); CREATININE 0.7 mg/dL (0.55-1.3); GLUCOSE,RANDOM 104 mg/dL (74-106); POTASSIUM 4.8 mmol/L (3.5-5.1); SGOT/AST 12 U/L (15-37); SGPT/ALT 16 U/L (13-61); SODIUM 140 mmol/L (136-145); TOT PROT 7.8 g/dl (6.4-8.2)
[2019-04-25 12:30] LABS: URINE APPEARANCE Clear; URINE BILIRUBIN Negative (NEGATIVE); URINE COLOR Yellow; URINE GLUCOSE (UA) Negative (NEGATIVE); URINE KETONE Negative (NEGATIVE); URINE LEUK ESTERASE Trace (NEGATIVE); URINE NITRITE Negative (NEGATIVE); URINE PROTEIN Negative (NEGATIVE); URINE UROBILINOGEN 0.2 mg/dL (0.2-1.0)
[2019-04-25 12:52] LABS: EPI CELLS 1.7 /HPF (0-5/HPF); URINE RBC 0.5 /hpf (0-4)
[2019-04-25 13:34] VITALS: BP 118/72; PULSE 67; TEMP 97.9
--- NOTE | 2019-04-25 14:35 | PDOC ---
Documentation entered by Candelario Spencer SCRIBE, acting as scribe for Channing Marie MD. Channing Marie MD: This documentation has been prepared by the Tj harrison Daniel, SCRIBE, under my direction and personally reviewed by me in its entirety. I confirm that the documentation accurately reflects all work, treatment, procedures, and medical decision making performed by me. Attending Attestation - Resident Resident Name: AmeenaJesenia valdivia - ED Attending Attestation I have performed the following: I have examined & evaluated the patient, The case was reviewed & discussed with the resident, I agree w/resident's findings & plan, Exceptions are as noted - HPI HPI: 04/25/19 10:40 The patient is a 48 year old female with a past medical history of seizures here today for evaluation of seizure. The patient reports that she was in the grocery store when she seized and awoke to EMS putting her on a stretcher. Patient is unsure if she hit her head but does endorse a headache. She states that this felt like her typical seizure and feels tired. Patient denies lightheadedness. Denies fever, chills. Denies chest pain, shortness of breath. Allergies: diphenhydramine HCL Surgical history: right shoulder and knee arthroscopy PCP: Ilsa Brandt Neurologist: Lesvia - Physicial Exam PE: 04/25/19 10:35 GENERAL: Awake, alert, and fully oriented, in no acute distress HEAD: No signs of trauma EYES: PERRLA, EOMI, sclera anicteric, conjunctiva clear ENT: Oropharynx clear without exudates. Moist mucosa NECK: Normal ROM, supple, no lymphadenopathy, JVD, or masses LUNGS: Breath sounds equal, clear to auscultation bilaterally. No wheezes, and no crackles HEART: Regular rate and rhythm, normal S1 and S2, no murmurs, rubs or gallops ABDOMEN: Soft, nontender, normoactive bowel sounds. No guarding, no rebound. No masses EXTREMITIES: +R hip pain with passive ROM but no deformities, rotation, shortening. Normal strength and sensation to RLE. Otherwise, normal range of motion, no edema. No clubbing or cyanosis. No cords, erythema, or tenderness NEUROLOGICAL: Normal speech, cranial nerves intact, negative pronator drift, 5/ 5 strength in all 4 extremities, normal sensation to light touch in all 4 extremities, normal cerebellar exam, normal gait, normal tone SKIN: Warm, Dry, normal turgor, no rashes or lesions noted. - Medical Decision Making 04/25/19 10:36 48yo F, hx seizure presents to the ED with seizure Did not take AM triliptal and vimpat Likely 2/2 to medication non compliance, but will check labs, UA to r/o infection, metabolic disarray as other causes +pain to R hip -> will obtain pelvis XR Fall was unwitnessed, thus will obtain CTH, c-spine, and CXR to r/o traumatic injury 04/25/19 13:33 chest, pelvis XR negative CTH c-spine negative labs wnl Likely seizure 2/2 med non compliance discussed with pt taking medications as soon as she wakes up Pt ambulating in ED, feels well at baseline Has appt with neurologist tomorrow She is clinically stable for DC home I discussed the physical exam findings, ancillary test results and final diagnoses with the patient. I answered all of the patient's questions. The patient was satisfied with the care received and felt comfortable with the discharge plan and treatment plan. The patient will call their primary care physician within 24 hours to arrange follow-up and will return to the Emergency Department with any new, persistent or worsening symptoms. Heart Score/ECG Review #1 04/25/19 14:33 Twelve-lead EKG was performed and reviewed by me. Sinus bradycardia, rate 58. Normal axis and intervals. No ST elevations. Isolated T wave inversion in lead III.
--- NOTE | 2019-04-26 10:28 | EKG ---
Test Reason : Blood Pressure : / mmHG Vent. Rate : 058 BPM Atrial Rate : 058 BPM P-R Int : 196 ms QRS Dur : 084 ms QT Int : 446 ms P-R-T Axes : 048 -06 004 degrees QTc Int : 437 ms SINUS BRADYCARDIA MODERATE VOLTAGE CRITERIA FOR LVH, MAY BE NORMAL VARIANT BORDERLINE ECG WHEN COMPARED WITH ECG OF 29-NOV-2017 08:22, NO SIGNIFICANT CHANGE WAS FOUND Confirmed by RUPA HUYNH, KATHIE ([id number]) on 04/26/2019 10:27:54 AM Referred By: Confirmed By:KATHIE GOODE MD
== END 2019-04-25 13:25 | disposition home or self-care (01) ==
LOC: JER 09:09
PROC: 3E0337Z Introduction of Electrolytic and Water Balance Substance into Peripheral Vein, Percutaneous Approach (ICD-10-PCS; principal; 2019-04-25)
PROC: 3E033NZ Introduction of Analgesics, Hypnotics, Sedatives into Peripheral Vein, Percutaneous Approach (ICD-10-PCS; 2019-04-25)
DX: G40.909 Epilepsy, unspecified, not intractable, without status epilepticus (principal); J33.9 Nasal polyp, unspecified; E11.9 Type 2 diabetes mellitus without complications; Z88.8 Allergy status to other drugs, medicaments and biological substances
CPT/HCPCS: 36415; 70450-TC; 71045-TC-FY; 72125-TC; 73523-TC-FY; 80053; 81003; 84702; 85025; 93005; 93010; 96361; 96374; 99283-25; J0131; J7030

== ENCOUNTER 2019-06-23 15:42 | Emergency (ER) | payer OTHER ==
[2019-06-23 16:10] VITALS: BMI 33.4
[2019-06-23 17:59] LABS: BASO % 0.6 % (0-2.0); EOS % 0.7 % (0-4.5); HEMATOCRIT 37.4 % (32.4-45.2); HEMOGLOBIN 12.4 GM/dL (10.7-15.3); LYMPH % 16.8 % (8-40); MCH 29.1 pg (25.7-33.7); MEAN CELL VOLUME 88.1 fl (80-96); MONO % 4.5 % (3.8-10.2); NEUT % 77.4 % (42.8-82.8); PLATELET COUNT 294 K/MM3 (134-434); RBC 4.24 M/mm3 (3.60-5.2); RDW 14.2 % (11.6-15.6); WHITE BLOOD COUNT 7.5 K/mm3 (4.0-10.0)
[2019-06-23 18:15] VITALS: TEMP 97.8
[2019-06-23 18:25] LABS: BILIRUBIN,TOTAL 0.1 mg/dL (0.2-1); BLOOD UREA NITROGEN 6.8 mg/dL (7-18); CALCIUM 9.2 mg/dL (8.5-10.1); CREATININE 0.7 mg/dL (0.55-1.3); POTASSIUM 4.6 mmol/L (3.5-5.1); TOT PROT 7.6 g/dl (6.4-8.2)
--- NOTE | 2019-06-23 18:59 | PDOC ---
Documentation entered by Carol Muro SCRIBE, acting as scribe for Channing Marie MD. Channing Marie MD: This documentation has been prepared by the Jina harrison Xhesika, SCRIBE, under my direction and personally reviewed by me in its entirety. I confirm that the documentation accurately reflects all work, treatment, procedures, and medical decision making performed by me. History of Present Illness - General Chief Complaint: Seizure Stated Complaint: SEIZURE Time Seen by Provider: 06/23/19 15:59 History Source: Patient, Family Exam Limitations: No Limitations - History of Present Illness Initial Comments: 06/23/19 17:11 The patient is a 49 year old female with a past medical history of seizures who presents to the ED s/p seizure. Daughter notes the patient was in the kitchen cooking, when her hands started shaking, pt's daughter hugged her and brought her to the ground. Daughter reports LOC but denies any head trauma or injury, incontinence, or tongue biting. The patient reports stress sometimes triggers her seizure and pt was in an argument at the grocery store earlier today. Patient states that she feels fatigued and tired which is typical after her seizures. Pt denies headache, dizziness, focal weakness/numbness. lightheadedness. Denies fever, chills. Denies chest pain, shortness of breath. She reports recent stressors, as well as some sleep deprivation. She is on vimpat 200mg BID and trileptal 300mg BID which she reports compliance with mostly, but has missed some doses here and there. She has f/u with her neurologist on 07/19/19 Allergies: diphenhydramine HCL Surgical history: right shoulder and knee arthroscopy PCP: Ilsa Brandt Neurologist: Lesvia Past History - Past Medical History Allergies/Adverse Reactions: Allergies Allergy/AdvReac Type Severity Reaction Status Date / Time diphenhydramine HCl Allergy Severe SEIZURE Verified 06/23/19 16:05 [From Benadryl] Home Medications: Ambulatory Orders Lacosamide [Vimpat] 200 mg PO BID 01/29/12 Oxcarbazepine [Trileptal] 300 mg PO BID 03/18/15 Cephalexin Monohydrate [Keflex -] 500 mg PO BID 6 Days #12 capsule 06/23/19 Anemia: No Asthma: No Cancer: No Cardiac Disorders: No CVA: No COPD: No CHF: No Dementia: No Diabetes: No (borderline-DIET CONTROLLED) GI Disorders: No Disorders: No HTN: No Hypercholesterolemia: No Liver Disease: No Seizures: Yes (vimpat and trileptal) Thyroid Disease: No - Surgical History Abdominal Surgery: No Appendectomy: No Cardiac Surgery: No Cholecystectomy: No Lung Surgery: No Neurologic Surgery: No Orthopedic Surgery: Yes (RIGHT KNEE ARTHROSCOPY, RIGHT SHOULDER ARTHROSCOPY) - Immunization History Td Vaccination: No TDAP Vaccination: No Immunization Up to Date: No - Psycho Social/Smoking Cessation Hx Smoking Status: Yes Smoking History: Never smoked Have you smoked in the past 12 months: No Number of Cigarettes Smoked Daily: 6 If you are a former smoker, when did you quit?: 2009 Information on smoking cessation initiated: No 'Breaking Loose' booklet given: 08/31/14 Hx Alcohol Use: No Drug/Substance Use Hx: No Substance Use Type: None Hx Substance Use Treatment: No Review of Systems - Review of Systems Able to Perform ROS?: Yes Comments:: 06/23/19 17:17 GENERAL/CONSTITUTIONAL: No fever or chills. + fatigue. + tired. HEAD, EYES, EARS, NOSE AND THROAT: No change in vision. No ear pain or discharge. No sore throat. GASTROINTESTINAL: No nausea, vomiting, diarrhea or constipation. GENITOURINARY: No dysuria, frequency, or change in urination. CARDIOVASCULAR: No chest pain or shortness of breath. RESPIRATORY: No cough, wheezing, or hemoptysis. MUSCULOSKELETAL: No joint or muscle swelling or pain. No neck or back pain. SKIN: No rash NEUROLOGIC: + seizure. No headache, vertigo, loss of consciousness, or change in strength/sensation. ENDOCRINE: No increased thirst. No abnormal weight change. HEMATOLOGIC/LYMPHATIC: No anemia, easy bleeding, or history of blood clots. ALLERGIC/IMMUNOLOGIC: No hives or skin allergy. *Physical Exam - Vital Signs Last Vital Signs Temp Pulse Resp BP Pulse Ox 97.9 F 83 17 131/98 100 06/23/19 15:42 06/23/19 15:42 06/23/19 15:42 06/23/19 15:42 06/23/19 15:42 - Physical Exam 06/23/19 17:17 GENERAL: Awake, alert, and fully oriented, in no acute distress HEAD: No signs of trauma EYES: PERRLA, EOMI, sclera anicteric, conjunctiva clear ENT: Nares patent, oropharynx clear without exudates. Moist mucosa NECK: Normal ROM, supple, no lymphadenopathy, JVD, or masses LUNGS: Breath sounds equal, clear to auscultation bilaterally. No wheezes, and no crackles HEART: Regular rate and rhythm, normal S1 and S2, no murmurs, rubs or gallops ABDOMEN: Soft, nontender, normoactive bowel sounds. No guarding, no rebound. No masses EXTREMITIES: Normal range of motion, no edema. No clubbing or cyanosis. No cords , erythema, or tenderness BACK: No midline spinal tenderness in cervical/thoracic/lumbar region NEUROLOGICAL: Normal speech, cranial nerves intact, 5/5 strength in all 4 extremities, normal sensation to light touch in all 4 extremities, normal cerebellar exam, normal gait, normal reflexes and tone SKIN: Warm, Dry, normal turgor, no rashes or lesions noted. Heart Score/ECG Review #1 06/23/19 18:57 Twelve-lead EKG was performed and reviewed by me. Normal sinus rhythm, rate 72. Normal axis. No ST elevations. ED Treatment Course - LABORATORY CBC & Chemistry Diagram: 06/23/19 17:45 06/23/19 17:45 - ADDITIONAL ORDERS Additional order review: Laboratory Results 06/23/19 06/23/19 17:45 17:45 Sodium 139 Potassium 4.6 Chloride 103 Carbon Dioxide 29 Anion Gap 6 L BUN 6.8 L Creatinine 0.7 Est GFR (CKD-EPI)AfAm 117.91 Est GFR (CKD-EPI)NonAf 101.74 Random Glucose 114 H Calcium 9.2 Magnesium 2.1 Total Bilirubin 0.1 L AST 17 ALT 23 Alkaline Phosphatase 63 Total Protein 7.6 Albumin 4.0 06/23/19 17:45 RBC 4.24 MCV 88.1 MCHC 33.0 RDW 14.2 MPV 7.0 L Neutrophils % 77.4 Lymphocytes % 16.8 Monocytes % 4.5 Eosinophils % 0.7 Basophils % 0.6 - RADIOLOGY Radiology Studies Ordered: Category Date Time Status CHEST X-RAY PORTABLE* [RAD] Stat Radiology 06/23/19 17:18 Taken Medical Decision Making - Medical Decision Making 06/23/19 18:58 49-year-old female with a history of a seizure disorder presents emergency department with a breakthrough seizure. Vitals within normal limits. Exam within normal limits, no evidence of trauma. Likely breakthrough seizure in the setting of missing antiepileptic doses +/- recent stress, however will check labs, urinalysis, chest x-ray to look for metabolic, anemic, or infectious causes of the breakthrough seizure. W/u remarkable for possible UTI Pt to be treated with keflex She is asymptomatic, remains well appearing and eager for DC home Will f/u with neurology as scheduled I discussed the physical exam findings, ancillary test results and final diagnoses with the patient. I answered all of the patient's questions. The patient was satisfied with the care received and felt comfortable with the discharge plan and treatment plan. The patient will call their primary care physician within 24 hours to arrange follow-up and will return to the Emergency Department with any new, persistent or worsening symptoms. Discharge - Discharge Information Problems reviewed: Yes Clinical Impression/Diagnosis: Seizure UTI (urinary tract infection) Qualifiers: Urinary tract infection type: acute cystitis Hematuria presence: without hematuria Qualified Code(s): N30.00 - Acute cystitis without hematuria Condition: Improved Disposition: HOME - Additional Discharge Information Prescriptions: Cephalexin Monohydrate [Keflex -] 500 mg PO BID 6 Days #12 capsule - Follow up/Referral Referrals: Ilsa Brandt MD [Primary Care Provider] - - Patient Discharge Instructions Patient Printed Discharge Instructions: Urinary Tract Infection Additional Instructions: We looked at your urine and found that you have a urinary tract infection. We are giving you your first dose of antibiotics here in the ED and sent the rest to your [facility] pharmacy. Please make sure to go and pick it up and take twice daily for the next 6 days. Come back to the ER if your symptoms do not improve, you get a fever, start vomiting, have flank pain, or have any other new or worsening concerns. Thank you for coming to the [facility] ER we hope you feel better soon! Please make sure to schedule a follow up appointment with your primary care doctor in the next 3 to 5 days to make sure you are feeling well, getting better , and being taken care of. Print Language: LATVIAN - Post Discharge Activity
[2019-06-23 19:19] LABS: EPI CELLS 11.8 /HPF (0-5/HPF); HYALINE CASTS 74 /lpf (0-8); PH,URINE 5.5 (5.0-8.0); URINE APPEARANCE CLOUDY; URINE BACTERIA 600.7 /hpf (NEGATIVE); URINE BILIRUBIN NEGATIVE (NEGATIVE); URINE COLOR YELLOW; URINE GLUCOSE (UA) NEGATIVE (NEGATIVE); URINE KETONE NEGATIVE (NEGATIVE); URINE LEUK ESTERASE 2+ (NEGATIVE); URINE NITRITE NEGATIVE (NEGATIVE); URINE PROTEIN TRACE (NEGATIVE); URINE UROBILINOGEN 0.2 mg/dL (0.2-1.0); URINE WBC 75 /hpf (0-5)
[2019-06-23] MEDS ORDERED: CEPHALEXIN MONOHYDRATE 500 MG CAPSULE (UD) PO ONE (19:37)
[2019-06-23] MEDS ORDERED: CEPHALEXIN MONOHYDRATE 500 MG CAPSULE (UD) ONE (19:42)
--- NOTE | 2019-06-23 19:42 | PDOC ---
*Physical Exam - Vital Signs Last Vital Signs Temp Pulse Resp BP Pulse Ox 97.8 F 70 18 130/79 99 06/23/19 18:14 06/23/19 18:14 06/23/19 18:14 06/23/19 18:14 06/23/19 18:14 - Physical Exam General Appearance: Yes: Nourished, Appropriately Dressed. No: Apparent Distress HEENT: positive: Normal ENT Inspection, Normal Voice Neck: positive: Supple Respiratory/Chest: positive: Lungs Clear, Normal Breath Sounds. negative: Respiratory Distress Cardiovascular: positive: Regular Rhythm, Regular Rate, S1, S2 Vascular Pulses: Dorsalis-Pedis (R): 2+, Doralis-Pedis (L): 2+ Gastrointestinal/Abdominal: positive: Normal Bowel Sounds, Tender (Suprapubic), Soft. negative: Guarding, Rebound Rectal Exam: positive: deferred Lymphatic: negative: Adenopathy Musculoskeletal: positive: Normal Inspection. negative: CVA Tenderness Extremity: positive: Normal Capillary Refill, Normal Inspection, Normal Range of Motion Integumentary: positive: Normal Color, Dry, Warm Neurologic: positive: Fully Oriented, Alert, Normal Mood/Affect, Normal Response ED Treatment Course - LABORATORY CBC & Chemistry Diagram: 06/23/19 17:45 06/23/19 17:45 - ADDITIONAL ORDERS Additional order review: Laboratory Results 06/23/19 06/23/19 06/23/19 18:55 17:45 17:45 Sodium 139 Potassium 4.6 Chloride 103 Carbon Dioxide 29 Anion Gap 6 L BUN 6.8 L Creatinine 0.7 Est GFR (CKD-EPI)AfAm 117.91 Est GFR (CKD-EPI)NonAf 101.74 Random Glucose 114 H Calcium 9.2 Magnesium 2.1 Total Bilirubin 0.1 L AST 17 ALT 23 Alkaline Phosphatase 63 Total Protein 7.6 Albumin 4.0 Urine Color Yellow Urine Appearance Cloudy Urine pH 5.5 D Ur Specific [place] 1.021 Urine Protein Trace Urine Glucose (UA) Negative Urine Ketones Negative Urine Blood Negative Urine Nitrite Negative Urine Bilirubin Negative Urine Urobilinogen 0.2 Ur Leukocyte Esterase 2+ H Urine WBC (Auto) 75 Urine Casts (Auto) 74 U Epithel Cells (Auto) 11.8 Urine Bacteria (Auto) 600.7 06/23/19 17:45 RBC 4.24 MCV 88.1 MCHC 33.0 RDW 14.2 MPV 7.0 L Neutrophils % 77.4 Lymphocytes % 16.8 Monocytes % 4.5 Eosinophils % 0.7 Basophils % 0.6 Medical Decision Making - Medical Decision Making Patient signed out to me with a UTI pending Abx - keflex and DC home - First dose given in ED - 500 mg Keflex BID sent to pharmacy for 6 days - Return precautions discussed with patient including continued dysuria, frequency, fever, flank pain, chills, nausea, vomiting, and any other concerns Discharge - Discharge Information Problems reviewed: Yes Clinical Impression/Diagnosis: UTI (urinary tract infection) Qualifiers: Urinary tract infection type: acute cystitis Hematuria presence: without hematuria Qualified Code(s): N30.00 - Acute cystitis without hematuria Condition: Improved Disposition: HOME - Admission No - Additional Discharge Information Prescriptions: Cephalexin Monohydrate [Keflex -] 500 mg PO BID 6 Days #12 capsule - Follow up/Referral Referrals: Ilsa Brandt MD [Primary Care Provider] - - Patient Discharge Instructions Patient Printed Discharge Instructions: Urinary Tract Infection Additional Instructions: We looked at your urine and found that you have a urinary tract infection. We are giving you your first dose of antibiotics here in the ED and sent the rest to your [facility] pharmacy. Please make sure to go and pick it up and take twice daily for the next 6 days. Come back to the ER if your symptoms do not improve, you get a fever, start vomiting, have flank pain, or have any other new or worsening concerns. Thank you for coming to the [facility] ER we hope you feel better soon! Please make sure to schedule a follow up appointment with your primary care doctor in the next 3 to 5 days to make sure you are feeling well, getting better , and being taken care of. Print Language: JAPANESE - Post Discharge Activity
[2019-06-23 19:51] VITALS: BP 123/69; PULSE 68
[2019-06-23 20:45] LABS: URINE RBC 4.5 /hpf (0-4)
--- NOTE | 2019-06-24 10:43 | EKG ---
Test Reason : Blood Pressure : / mmHG Vent. Rate : 069 BPM Atrial Rate : 069 BPM P-R Int : 206 ms QRS Dur : 082 ms QT Int : 422 ms P-R-T Axes : 047 -02 000 degrees QTc Int : 452 ms NORMAL SINUS RHYTHM POSSIBLE LEFT ATRIAL ENLARGEMENT BORDERLINE ECG WHEN COMPARED WITH ECG OF 23-JUN-2019 16:01, NO SIGNIFICANT CHANGE WAS FOUND Confirmed by MARQUEZ HUYNH, JEROME ([id number]) on 06/24/2019 10:42:23 AM Referred By: Confirmed By:JEROME ZAYAS MD
--- NOTE | 2019-06-28 01:08 | EKG ---
Test Reason : Blood Pressure : / mmHG Vent. Rate : 072 BPM Atrial Rate : 072 BPM P-R Int : 192 ms QRS Dur : 090 ms QT Int : 406 ms P-R-T Axes : 052 -04 008 degrees QTc Int : 444 ms NORMAL SINUS RHYTHM MODERATE VOLTAGE CRITERIA FOR LVH, MAY BE NORMAL VARIANT BORDERLINE ECG WHEN COMPARED WITH ECG OF 25-APR-2019 10:22, NO SIGNIFICANT CHANGE WAS FOUND Confirmed by RUPA HUYNH, KATHIE ([id number]) on 06/28/2019 1:08:22 AM Referred By: Confirmed By:KATHIE GOODE MD
== END 2019-06-23 19:50 | disposition home or self-care (01) ==
LOC: JER 15:42
DX: N30.00 Acute cystitis without hematuria (principal); Z88.8 Allergy status to other drugs, medicaments and biological substances; R73.03 Prediabetes
CPT/HCPCS: 36415; 71045-TC-FY; 80053; 81003; 83735; 84703; 85025; 87086; 93005; 93010; 99284-25

== ENCOUNTER 2019-07-08 15:04 | Emergency (ER) | payer OTHER ==
[2019-07-08 15:24] VITALS: TEMP 97.8; BMI 38.0
--- NOTE | 2019-07-08 16:57 | PDOC ---
History of Present Illness - General Chief Complaint: Seizure Stated Complaint: SEIZURES Time Seen by Provider: 07/08/19 15:46 History Source: Patient Exam Limitations: No Limitations - History of Present Illness Initial Comments: 49 y/o F, pmh of diet controlled DM, seizure disorder, presents to the ED from her PCP's office(Ilsa Morocho) for 1 episode of seizure lasting 1 minute preceded by aura and followed by headache rated at 5/10. Pt has had previous seizure episodes with the most recent being on 06/23/19 requiring admission here at [facility]. Pt is managed outpt by Dr. Lakhani, neurologist, in [place]. Admits to aura of dizziness and headaches. She denies hitting her head, blurry vision, tongue lacerations, bowel/urinary incontinence, f/c/n/v/d/chest pain/ abdominal pain. 07/08/19 16:56 07/08/19 17:10 07/08/19 17:17 Associated Symptoms: reports: denies symptoms. denies: chest pain, cough, diaphoresis, fever/chills, nausea/vomiting, shortness of breath, weakness Past History - Travel Traveled outside of the country in the last 30 days: No Close contact w/someone who was outside of country & ill: No - Past Medical History Allergies/Adverse Reactions: Allergies Allergy/AdvReac Type Severity Reaction Status Date / Time diphenhydramine HCl Allergy Severe SEIZURE Verified 06/23/19 16:05 [From Benadryl] Home Medications: Ambulatory Orders Lacosamide [Vimpat] 200 mg PO BID 01/29/12 Oxcarbazepine [Trileptal] 300 mg PO BID 03/18/15 Anemia: No Asthma: No Cancer: No Cardiac Disorders: No CVA: No COPD: No CHF: No Dementia: No Diabetes: No (borderline-DIET CONTROLLED) GI Disorders: No Disorders: No HTN: No Hypercholesterolemia: No Liver Disease: No Seizures: Yes (vimpat and trileptal) Thyroid Disease: No - Surgical History Abdominal Surgery: No Appendectomy: No Cardiac Surgery: No Cholecystectomy: No Lung Surgery: No Neurologic Surgery: No Orthopedic Surgery: Yes (RIGHT KNEE ARTHROSCOPY, RIGHT SHOULDER ARTHROSCOPY) - Family Medical History Family Hx Respiratory Disorders: Grandfather (paternal) (lung cancer) - Immunization History Td Vaccination: No TDAP Vaccination: No Immunization Up to Date: No - Psycho Social/Smoking Cessation Hx Smoking Status: Yes Smoking History: Never smoked Have you smoked in the past 12 months: No Number of Cigarettes Smoked Daily: 6 If you are a former smoker, when did you quit?: 2009 Are you using electronic cigarettes/vaping?: No Information on smoking cessation initiated: No 'Breaking Loose' booklet given: 08/31/14 Hx Alcohol Use: No Drug/Substance Use Hx: No Substance Use Type: None Hx Substance Use Treatment: No Review of Systems - Review of Systems Able to Perform ROS?: Yes Is the patient limited Bulgarian proficient: No Constitutional: Yes: Weight Stable. No: Chills, Diaphoresis, Fever, Weakness HEENTM: No: Eye Pain, Blurred Vision, Tearing Respiratory: No: Cough, Orthopnea, Shortness of Breath, Stridor, Wheezing, Productive cough Cardiac (ROS): No: Chest Pain, Irregular Heart Rate, Chest Tightness ABD/GI: No: Abdominal Distended, Blood Streaked Bowels, Diarrhea, Nausea, Vomiting : No: Burning, Dysuria Musculoskeletal: No: Back Pain Integumentary: No: Bruising Neurological: Yes: Headache, Seizure. No: Numbness, Paresthesia, Tingling, Tremors, Weakness, Ataxia, Dizziness Psychiatric: No: Anxiety, Depression *Physical Exam - Vital Signs Last Vital Signs Temp Pulse Resp BP Pulse Ox 97.8 F 52 L 16 144/88 98 07/08/19 15:05 07/08/19 15:05 07/08/19 15:05 07/08/19 15:05 07/08/19 15:05 - Physical Exam General Appearance: Yes: Nourished, Appropriately Dressed, Obese HEENT: positive: EOMI, [place], Normal ENT Inspection, Pharynx Normal Neck: positive: Normal Thyroid, Supple. negative: Decreased range of motion, Lymphadenopathy (R), Lymphadenopathy (L), Thyromegaly Respiratory/Chest: positive: Lungs Clear, Normal Breath Sounds. negative: Chest Tender, Respiratory Distress, Accessory Muscle Use, Crackles, Rales, Wheezing Cardiovascular: positive: Regular Rhythm, Regular Rate, S1, S2. negative: Murmur, Gallop/S3, Gallop/S4 Vascular Pulses: Dorsalis-Pedis (R): 2+, Doralis-Pedis (L): 2+ Gastrointestinal/Abdominal: positive: Normal Bowel Sounds. negative: Soft, Organomegaly, Guarding, Rebound Musculoskeletal: positive: Normal Inspection. negative: CVA Tenderness Extremity: positive: Normal Inspection Neurologic: positive: pulmonary physical therapist II-XII NML intact, Fully Oriented, Alert, Normal Mood/ Affect, Motor Strength 5/5. negative: Abnormal Cranial NS, EOM Palsy, Facial Droop, Sensory Deficit, Confused ED Treatment Course - LABORATORY CBC & Chemistry Diagram: 07/08/19 18:30 07/08/19 18:30 - ADDITIONAL ORDERS Additional order review: Laboratory Results 07/08/19 15:25 POC Glucometer 107 07/08/19 15:25 POC Glucometer 107 Medical Decision Making - Medical Decision Making 49 y/o F, pmh of diet controlled DM, seizure disorder, presents to the ED from her PCP's office(Ilsa Morocho) for 1 episode of seizure lasting 1 minute preceded by aura and followed by headaches #Seizures hx of seizure disorder no LOC, no tongue laceration, no incontinence CBC, CMP Trilectol levels ordered Spoke to her neurologist Dr. Lakhani, follow up visit to be scheduled for tomorrow am Advised pt to confirm her prescribed dosage of antiepileptic meds Regular neuro exams monitor neuro status Dispo: pt clinically stable, neuro exams, f/u labs and then plan for discharge 07/08/19 17:23 Discharge - Discharge Information Problems reviewed: Yes Clinical Impression/Diagnosis: Seizure Condition: Improved Disposition: HOME - Admission No - Follow up/Referral Referrals: Martínez Conrad MD [Primary Care Provider] - Saleem Lakhani [Non Staff, Medical] - - Patient Discharge Instructions Patient Printed Discharge Instructions: DI for Seizure Disorder -- Adult Additional Instructions: You were seen in the ER for seizures. While in the ER, we evaluated you with lab work, blood work and monitored you for further seizures. We found that your seizures may have been caused by inadequate dosing of your seizure medications. To ensure that your seizures are under control; Please follow up with your Neurologist Dr. Lakhani tomorrow morning as early as possible. We have informed Dr. Lakhani of your arrival. You will have to call in the morning and let them know you are coming in. Please take all your medications as prescribed, especially your seizure medications Please follow up with your neurologist tomorrow morning Please follow up with your primary care physician within 1 week Return to the emergency room, if you experience any further seizures, weakness, numbness, shortness of breath, chest pain or worsening of your condition. - Post Discharge Activity
--- NOTE | 2019-07-08 17:35 | PDOC ---
Attending Attestation - Resident Resident Name: Andrea Seo - ED Attending Attestation I have performed the following: I have examined & evaluated the patient, The case was reviewed & discussed with the resident, I agree w/resident's findings & plan, Exceptions are as noted - HPI HPI: 07/08/19 17:31 49 yo f h/o DM , seizure disorder, here after having seizue whil in pcp office. pt states she does usually have an aura. did not hit head. was witnessed. has on average 1/ month, no change to medication recently except has been getting generic at [facility] she attributes to more seizures. no other complaints. at current feels back to baseline. no f/c. no head trauma. - Physicial Exam PE: 07/08/19 17:35 awake alert lungs clear bilat heart rrr no mrg abd soft nt nd ext wwp. no edema. no calf tenderness. skin warm and dry. nuero alert oriente x 3. 5/5 all four ext. 07/08/19 17:35 - Medical Decision Making 07/08/19 17:35 49 yo F h/o seizure disorder, here with break through siezure. r/o electrolyte abnormality, hyper or hypoglycemia. plan labs glucose. glucose was normal. will d/w pt pcp and nuerologist. d/w on larisa nuerologist. states pt is on high doses of medication. recommend to pt to discuss with Dr south or nueorlogist regarding request for on generic prescription. close followup recommended. 07/08/19 19:20 pt electrolytes labs normal. tox levels pending for antiepiletpics. pt to follow up with nueorlogist.
[2019-07-08 18:49] LABS: BASO % 0.8 % (0-2.0); HEMATOCRIT 37.5 % (32.4-45.2); HEMOGLOBIN 12.4 GM/dL (10.7-15.3); LYMPH % 15.9 % (8-40); MCH 29.1 pg (25.7-33.7); NEUT % 78.3 % (42.8-82.8); PLATELET COUNT 299 K/MM3 (134-434); RBC 4.26 M/mm3 (3.60-5.2); RDW 14.2 % (11.6-15.6); WHITE BLOOD COUNT 8.9 K/mm3 (4.0-10.0)
[2019-07-08 19:14] LABS: ALBUMIN 3.8 g/dl (3.4-5.0); BILIRUBIN,TOTAL 0.2 mg/dL (0.2-1); BLOOD UREA NITROGEN 9.2 mg/dL (7-18); CALCIUM 8.8 mg/dL (8.5-10.1); CREATININE 0.6 mg/dL (0.55-1.3); POTASSIUM 4.3 mmol/L (3.5-5.1); TOT PROT 7.4 g/dl (6.4-8.2)
[2019-07-08 19:35] VITALS: BP 138/84; PULSE 60
--- NOTE | 2019-07-09 11:10 | EKG ---
Test Reason : Blood Pressure : / mmHG Vent. Rate : 062 BPM Atrial Rate : 062 BPM P-R Int : 192 ms QRS Dur : 082 ms QT Int : 430 ms P-R-T Axes : 051 -08 -03 degrees QTc Int : 436 ms NORMAL SINUS RHYTHM MODERATE VOLTAGE CRITERIA FOR LVH, MAY BE NORMAL VARIANT NONSPECIFIC T WAVE ABNORMALITY ABNORMAL ECG WHEN COMPARED WITH ECG OF 23-JUN-2019 18:08, NO SIGNIFICANT CHANGE WAS FOUND Confirmed by GALILEA QUEEN MD ([id number]) on 07/09/2019 11:09:48 AM Referred By: Confirmed By:GALILEA QUEEN MD
== END 2019-07-08 19:37 | disposition home or self-care (01) ==
LOC: JER 15:04
DX: G40.909 Epilepsy, unspecified, not intractable, without status epilepticus (principal); E11.9 Type 2 diabetes mellitus without complications; Z88.8 Allergy status to other drugs, medicaments and biological substances
CPT/HCPCS: 36415; 80053; 80183; 82962; 85025; 93005; 93010; 99283-25

== ENCOUNTER 2022-01-26 10:35 | Emergency (ER) | payer OTHER ==
[2022-01-26 10:41] VITALS: BP 154/82; PULSE 69; TEMP 98.5; BMI 37.7
[2022-01-26] MEDS ORDERED: IBUPROFEN 600 MG TABLET (FP) PO ONE ×2 (11:44→11:48)
== END 2022-01-26 12:04 | disposition home or self-care (01) ==
LOC: JERFT 10:35
DX: J01.10 Acute frontal sinusitis, unspecified (principal)
CPT/HCPCS: 99283-25